=== PATIENT | female | born 1990 | race Caucasian/White ===

== ENCOUNTER 2017-04-02 18:10 | Emergency (ER) | payer BC, OTHER ==
[2017-04-02 19:12] LABS: Hematocrit 41 % (35-47); Hemoglobin 13.9 g/dl (12.0-16.0); Mean Corpuscular HGB Conc 34 g/dl (31-36); Mean Corpuscular Hemoglobin 30 pg (27-31); Mean Corpuscular Volume 88 fL (80-97); Mean Platelet Volume 8 um3 (7.4-10.4); Red Blood Count 4.64 10^6/ul (4.0-5.4); Red Cell Distribution Width 13 % (10.5-15)
[2017-04-02 19:26] LABS: ALT 34 U/L (7-52); AST 19 U/L (13-39); Albumin 3.9 g/dL (3.2-5.2); Alkaline Phosphatase 52 U/L (34-104); Anion Gap 7 mmol/L (2-11); BUN/Creatinine Ratio 18.1 (8-20); Blood Urea Nitrogen 13 mg/dL (6-24); CO2 Carbon Dioxide 25 mmol/L (22-32); Calcium 9.3 mg/dL (8.6-10.3); Chloride 103 mmol/L (101-111); EGFR Non-African American 97.2 (>60); Globulin 3.3 g/dL (2-4); Glucose 98 mg/dL (70-100); Potassium 3.8 mmol/L (3.5-5.0); Sodium 135 mmol/L (133-145); Total Protein 7.2 g/dL (6.4-8.9)
--- NOTE | 2017-04-02 21:05 | RAD ---
INDICATION: Rib pain COMPARISON: None TECHNIQUE: An AP portable view obtained at 2046 hours is submitted. FINDINGS: Bones/Soft Tissues: There are no acute bony findings. Cardiomediastinal: The cardiomediastinal silhouette is normal. Lungs: There are no infiltrates. Pleura: There are no pleural effusions. Other: None IMPRESSION: NO ACTIVE DISEASE.
--- NOTE | 2017-04-03 00:10 | ED ---
Maria L Mccarthy Rebecca, scribed for Tank Mendez MD on 04/02/17 at 2005 . Abdominal Pain/Female - HPI Summary HPI Summary: Pt is a 27 y/o F who presents to ED c/o abdominal pain. Sx began about 1 week ago. Pain is in the RUQ and characterized as dull, currently mild, ranked 3/10. Has not taken any pain medication. Sx aggravated by exhaling, alleviated by nothing. Additionally c/o sore throat and intermittent, mild pain in the L lumbar back in the morning that occurs once and lasts for about 20 seconds for the past week. Denies wheezing, N/V. No recent physical activity. No prior similar episodes. Pt is on multiple allergy medications. No PSHx on the abdomen. NKDA. - History of Current Complaint Chief Complaint: EDAbdPain Stated Complaint: RT SIDE PAIN Hx Obtained From: Patient Onset/Duration: Still Present Severity Currently: Mild Pain Intensity: 3 Pain Scale Used: 0-10 Numeric Location: Discrete At: RUQ Radiates: No Character: Dull Aggravating Factor(s): Other: - Breathing out Alleviating Factor(s): Nothing Associated Signs and Symptoms: Positive: Other: - Sore throat. Negative: Nausea , Vomiting Allergies/Adverse Reactions: Allergies Allergy/AdvReac Type Severity Reaction Status Date / Time No Known Allergies Allergy Verified 04/02/17 18:12 PMH/Surg Hx/FS Hx/Imm Hx Cardiovascular History: Denies: Hx Coronary Artery Disease Respiratory History: Reports: Hx Seasonal Allergies Infectious Disease History: No Infectious Disease History: Reports: Traveled Outside the [place] in Last 30 Days - [place] - Family History Known Family History: Positive: Diabetes, Other - HLD - Social History Alcohol Use: Occasionally Substance Use Type: Reports: None Smoking Status (MU): Never Smoked Tobacco Review of Systems Positive: Sore Throat Positive: Other - NEGATIVE: Wheezing Positive: Abdominal Pain. Negative: Vomiting, Nausea Positive: Other - One episode All Other Systems Reviewed And Are Negative: Yes Physical Exam - Summary Physical Exam Summary: Appearance: Well-appearing, Well-nourished Skin: Warm Eyes: Normal ENT: Normal Neck: Supple, nontender Respiratory: Clear to auscultation Cardiovascular: Normal Abdomen: Soft, negative Stringer's sign, minimal tenderness in the RUQ, no rebound or guarding Bowel: Present Musculoskeletal: Normal, Strength/ROM Intact Neurological: Normal, A&Ox3 Psychiatric: Normal Triage Information Reviewed: Yes Vital Signs On Initial Exam: Initial Vitals Temp Pulse Resp BP Pulse Ox 98.2 F 79 16 131/75 99 04/02/17 18:11 04/02/17 18:11 04/02/17 18:11 04/02/17 18:11 04/02/17 18:11 Vital Signs Reviewed: Yes - Dany Coma Scale Coma Scale Total: 15 Diagnostics - Vital Signs Vital Signs Temp Pulse Resp BP Pulse Ox 04/02/17 18:11 98.2 F 79 16 131/75 99 - Laboratory Lab Results: Lab Results 04/02/17 04/02/17 Range/Units 19:01 19:01 WBC 7.0 (3.5-10.8) 10^3/ul RBC 4.64 (4.0-5.4) 10^6/ul Hgb 13.9 (12.0-16.0) g/dl Hct 41 (35-47) % MCV 88 (80-97) fL MCH 30 (27-31) pg MCHC 34 (31-36) g/dl RDW 13 (10.5-15) % Plt Count 225 (150-450) 10^3/ul MPV 8 (7.4-10.4) um3 Neut % (Auto) 43.8 (38-83) % Lymph % (Auto) 45.7 (25-47) % Bertie % (Auto) 5.8 (1-9) % Eos % (Auto) 4.2 (0-6) % Baso % (Auto) 0.5 (0-2) % Absolute Neuts (auto) 3.1 (1.5-7.7) 10^3/ul Absolute Lymphs (auto) 3.2 (1.0-4.8) 10^3/ul Absolute Monos (auto) 0.4 (0-0.8) 10^3/ul Absolute Eos (auto) 0.3 (0-0.6) 10^3/ul Absolute Basos (auto) 0 (0-0.2) 10^3/ul Absolute Nucleated RBC 0 10^3/ul Nucleated RBC % 0 Sodium 135 (133-145) mmol/L Potassium 3.8 (3.5-5.0) mmol/L Chloride 103 (101-111) mmol/L Carbon Dioxide 25 (22-32) mmol/L Anion Gap 7 (2-11) mmol/L BUN 13 (6-24) mg/dL Creatinine 0.72 (0.51-0.95) mg/dL Est GFR ( Amer) 125.0 (>60) Est GFR (Non-Af Amer) 97.2 (>60) BUN/Creatinine Ratio 18.1 (8-20) Glucose 98 (70-100) mg/dL Calcium 9.3 (8.6-10.3) mg/dL Total Bilirubin 0.40 (0.2-1.0) mg/dL AST 19 (13-39) U/L ALT 34 (7-52) U/L Alkaline Phosphatase 52 (34-104) U/L Total Protein 7.2 (6.4-8.9) g/dL Albumin 3.9 (3.2-5.2) g/dL Globulin 3.3 (2-4) g/dL Albumin/Globulin Ratio 1.2 (1-3) Result Diagrams: 04/02/17 19:01 04/02/17 19:01 Lab Statement: Any lab studies that have been ordered have been reviewed, and results considered in the medical decision making process. - Radiology CXR Xray Interpretation: No Acute Changes - NO ACTIVE DISEASE. ED physician reviewed radiology report and agrees. Radiology Interpretation Completed By: Radiologist Abdominal Pain Fem Course/Dx - Course Course Of Treatment: feels better after meds here in ED, no acute abnormalities on imaging, instructed to fu with PMD agrees to and understnads dc instructoins - Diagnoses Provider Diagnoses: Painful rib Discharge - Discharge Plan Condition: Improved Disposition: HOME Patient Education Materials: Rib Contusion (ED) Referrals: Non Staff,Doctor [Primary Care Provider] - [facility] [place] [facility] [Outside] Additional Instructions: PLEASE MAKE AN APPOINTMENT FIRST THING IN THE MORNING TO BE SEEN BY A PRIMARY CARE DOCTOR WITHIN 1 WEEK PLEASE RETURN TO THE EMERGENCY ROOM IF YOU HAVE ANY WORSENING OR CONCERNING SYMPTOMS The documentation as recorded by the Maria L ferreira Rebecca accurately reflects the service I personally performed and the decisions made by me, Tank Mendez MD.
[2017-04-03 00:45] VITALS: BP 126/79
--- NOTE | 2017-04-03 07:46 | RAD ---
HISTORY: Right upper quadrant pain COMPARISONS: None TECHNIQUE: Multiple transverse and longitudinal ultrasound images were obtained of the right upper quadrant. FINDINGS: LIVER: The liver is normal in dimensions and echogenicity. Normal hepatic and portal venous blood flow is duplicated with color flow imaging. There is no gross intrahepatic biliary duct dilatation. GALLBLADDER AND EXTRAHEPATIC BILIARY DUCT: Evaluation of the gallbladder is slightly limited due to partial contraction at the time of imaging. The gallbladder is normal in appearance without intraluminal stones or other soft tissue masses. There is no pericholecystic fluid or gallbladder wall thickening. The common bile duct measures a maximum diameter of 2 mm. PANCREAS: The portions of the pancreas not obscured by bowel gas are normal in appearance. RIGHT KIDNEY: The right kidney is normal in size, morphology and echogenicity. AORTA AND IVC: The visualized portions are normal in appearance and not pathologically dilated. IMPRESSION: Normal ultrasound of the right upper quadrant.
== END 2017-04-03 00:44 | disposition home or self-care (01) ==
LOC: ED 18:10
DX: R07.81 Pleurodynia (principal); J02.9 Acute pharyngitis, unspecified
CPT/HCPCS: 36415; 71010; 76705; 80053; 84702; 85025; 99284

== ENCOUNTER 2024-07-02 20:33 | Inpatient (IN) ==
[2024-07-02] MEDS ORDERED: Nalbuphine 10 MG/ML 1 ML VIAL IV PRN (22:25)
[2024-07-02] MEDS ORDERED: Lidocaine 1% VIAL 10 MG/ML 30 ML VIAL INJ PRN (22:25)
[2024-07-02] MEDS: miSOPROStol 100 mcg TAB ONE (22:45)
[2024-07-02 23:36] LABS: Urine Benzodiazepine Screen None Detected (None Detect); Urine Cannabinoids Screen Presumptive Positive (None Detect); Urine Opiates Screen None Detected (None Detect)
[2024-07-03] MEDS ORDERED: Albuterol HFA INHALER 8 gm MDI INH PRN (00:24)
[2024-07-03] MEDS ORDERED: Ondansetron 4 mg VIAL 2 MG/ML 2 ml VIAL IV PRN (01:32)
[2024-07-03] MEDS ORDERED: Calcium Carb (TUMS) 500 mg CHEW TAB PO PRN (01:33)
[2024-07-03] MEDS: Oxytocin 10 UNITS/ML 1 ML VIAL IM ONE (06:30)
[2024-07-03] MEDS ORDERED: Polyethylene Glycol 3350 17 GM PACKET PO PRN (07:41)
[2024-07-03] MEDS ORDERED: Glycerin ADULT 2.4 gm SUPP PR PRN (07:41)
[2024-07-03] MEDS: Dibucaine 1% OINT 28.35 GM TUBE PR PRN (08:05)
[2024-07-03] MEDS: Witch Hazel PAD JAR TOPICAL PRN (08:05)
[2024-07-03] MEDS: Buffered Lidocaine 1% SYRIN 1 ml INTRADERM ONE (08:06)
[2024-07-03] MEDS: Mometasone/Formoter 100/5 MDI INH SCH (08:06)
[2024-07-03] MEDS: Lidocaine 1% VIAL 10 MG/ML 30 ML VIAL ONE (10:54)
[2024-07-03] MEDS: Lactated Ringers 1000 ml BAG 1,000 ML IV SCH (10:55)
[2024-07-03] MEDS: Lactated Ringers 1000 ml BAG 1,000 ML IV ONE (10:55)
[2024-07-03] MEDS: miSOPROStol 100 mcg TAB ONE (10:56)
[2024-07-04 10:15] LABS: ABS Basophils 0.1 10^3/uL (0.0-0.1); ABS Eosinophils 0.2 10^3/uL (0.0-0.5); ABS Lymphocytes 3.5 10^3/uL (1.0-4.8); ABS Monocytes 0.6 10^3/uL (0.0-0.9); ABS Neutrophils 10.5 10^3/uL (1.5-7.6); ABS Nucleated RBC 0.01 10^3/ul; Eosinophil % 1.4 %; Hematocrit 31.8 % (35-45); Hemoglobin 10.8 g/dL (11.5-14.3); Lymphocyte % 23.3 %; Mean Corpuscular Hemoglobin 29.7 pg (27-33); Mean Corpuscular Hgb Conc 33.9 g/dL (31-36); Mean Corpuscular Volume 87.4 fL (80-97); Mean Platelet Volume 10.4 fL (7.5-11.2); Platelet Count 176 10^3/uL (150-450); Red Blood Count 3.63 10^6/uL (3.63-4.92); Red Cell Distribution Width 14.2 % (12-17); White Blood Count 14.9 10^3/uL (3.8-11.8)
[2024-07-05 09:55] VITALS: BP 117/88
== END 2024-07-05 16:20 | disposition home or self-care (01) | DRG 560 ==
LOC: MCHOBOUT 20:33 → MCHOB 21:29